=== PATIENT | female | born 1985 | race Caucasian/White ===

== ENCOUNTER 2016-04-08 08:45 | Emergency (ER) | payer OTHER ==
[~2016-04-08 08:45] MED LIST: ACET50TA PO; ANUS2.5C2 PR; DOCU10ELUD PO; IBUP80TA PO; MOM30SS PO; PRENTAB9 PO
--- NOTE | 2016-04-08 09:03 | EDDOCDS ---
Physician Documentation [facility] Name: Diana De La Torre Age: 30 yrs Sex: Female : 1985 Arrival Date: 04/08/2016 Time: 08:45 Bed I3 / M3 Private MD: Laura Disposition: 04/08/16 08:56 Discharged to Home/Self Care. Impression: Acute pharyngitis. - Condition is Stable. - Discharge Instructions: Pharyngitis. - Prescriptions for lidocaine HCl 2 % Mucous Membrane solution - take 15 milliliter by ORAL route every 3 hours As needed swish, gargle and spit; 200 milliliter. Amoxicillin 875 mg Oral Tablet - take 1 tablet by ORAL route every 12 hours for 10 days; 20 tablet. Prednisone 20 mg Oral Tablet - take 1 tablet by ORAL route once daily for 5 days; 5 tablet. - Medication Reconciliation, Local Pharmacy Hours form. - Follow up: Emergency Department; When: As needed; Reason: Worsening of conditions. Follow up: Laura; When: Call to arrange an appointment; Reason: Wound/Symptom Recheck, Recheck today's complaints, Worsening of conditions, Continuance of care. - Problem is new. - Symptoms are unchanged. Historical: - Allergies: no known allergies; - Home Meds: 1. none - PMHx: none; - PSHx: none; - Social history: Smoking status: Patient states was never smoker of tobacco. No barriers to communication noted, The patient speaks fluent Macanese, Speaks appropriately for age. - Family history: Not pertinent. - : The pt / caregiver states he / she is not on anticoagulants. Home medication list is obtained from the patient. - Exposure Risk Screening:: None identified. 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 2 in. (157.48 cm); Pain 8/10; 08:47 Body Mass Index 30.18 (74.84 kg, 157.48 cm) cmb Signatures: Kali Nazario RN RN mlb1 Nena ParikhRN RN ck1 [place], Marco, PA-C PA-C cc10 MTDD
--- NOTE | 2016-04-08 09:03 | EDDOCDS ---
Nurse's Notes [facility] Name: Diana De La Torre Age: 30 yrs Sex: Female : 1985 Arrival Date: 04/08/2016 Time: 08:45 Bed I3 / M3 Private MD: Laura Diagnosis: Acute pharyngitis Presentation: 04/08 08:49 Presenting complaint: Patient states: Sore throat began last night. Risk factors: mlb1 Stridor is not present. Drooling is not present. Shortness of breath is not present. Cellulitis is not present. Adult Sepsis Screening: The patient does not have new or worsening altered mentation. Patient's respiratory rate is less than 22. Systolic blood pressure is greater than 100. Patient has a qSOFA score of 0- Negative Sepsis Screen. Suicide/Homicide risk assessment- the patient denies having any suicidal and/or homicidal ideations and does not present with any other emotional, behavioral or mental health complaints. 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 Transition of care: patient was not received from another setting of care. 08:49 Acuity: SUNIL Level 4 mlb1 08:49 Method Of Arrival: Walkin/Carried/Asstd mlb1 Triage Assessment: 08:50 General: Appears in no apparent distress, Behavior is appropriate for age, cooperative. mlb1 Pain: Location: left aspect of posterior pharynx and right aspect of posterior pharynx Pain currently is 9 out of 10 on a pain scale. Pt Declines HIV testing. 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 none - PMHx: none; - PSHx: none; - Social history: Smoking status: Patient states was never smoker of tobacco. No barriers to communication noted, The patient speaks fluent Kazakh, Speaks appropriately for age. - Family history: Not pertinent. - : The pt / caregiver states he / she is not on anticoagulants. Home medication list is obtained from the patient. - Exposure Risk Screening:: None identified. Screenin:00 Screening information is obtained from the patient. Fall risk: No risks identified. ck1 Assistance ADL's: requires no assistance with activities of daily living. Abuse/DV Screen: The patient / caregiver reports he/she is: not in a situation that causes fear, pain or injury. Nutritional screening: No deficits noted. Advance Directives: Currently, there is no health care proxy. home support is adequate. Assessment: 09:00 General: Appears in no apparent distress, comfortable, Behavior is appropriate for age, ck1 cooperative. Pain: Location: throat Pain currently is 8 out of 10 on a pain scale. EENT: Throat is reddened has enlarged tonsils bilaterally. Respiratory: Airway is patent Respiratory effort is unlabored, Respiratory pattern is regular, symmetrical. Derm: Skin is intact, is healthy with good turgor, Skin is pink, warm & dry. Vital Signs: 08:47 BP 117 / 70; Pulse 99; Resp 16; Temp 99.4(O); Pulse Ox 98% ; Weight 74.84 kg; Height 5 cmb ft. 2 in. (157.48 cm); Pain 8/10; 08:47 Body Mass Index 30.18 (74.84 kg, 157.48 cm) cmb Vitals: 08:46 Log In Time: April 08, 2016 at 08:43. cmb ED Course: 08:46 Patient visited by Dyan Schmidt. cmb 08:46 Laura is Private Physician. cmb 08:46 Patient moved to Waiting cmb 08:48 Patient moved to Pre RCE cmb 08:49 Patient visited by Kali Nazario RN. mlb1 08:50 Triage Initiated mlb1 08:51 Patient visited by Kali Nazario RN. mlb1 08:51 Marco Pemberton [facility] cc10 08:51 Cindy Oscar MD is Attending Physician. cc10 08:51 Patient visited by Marco Pemberton PA-C. cc10 08:51 Patient visited by Marco Pemberton PA-C. cc10 08:51 Patient moved to I3 / M3 mlb1 08:56 Laura is Referral Physician. cc10 09:00 The patient / caregiver is instructed regarding the plan of care and ED course. ck1 09:00 No IV's were initiated during this patient's visit. No procedures done that require ck1 assistance. Order Results: There are currently no results for this order. Outcome: 08:56 Discharge ordered by Provider. cc10 09:01 Discharge Assessment: Patient awake, alert and oriented x 3. No cognitive and/or ck1 functional deficits noted. Patient verbalized understanding of disposition instructions. patient administered narcotics - no. The following High Risk Discharge criteria are identified: None. Discharged to home ambulatory. Condition: stable. Discharge instructions given to patient, Instructed on discharge instructions, follow up and referral plans. medication usage, Demonstrated understanding of instructions, medications, Pt was receptive of discharge instructions/ teaching. Prescriptions given X 3. No special radiology studies were completed. Property :Personal belongings accompany Pt. 09:02 Patient left the ED. ck1 Signatures: Kali Nazario, RN RN mlb1 Nena ParikhRN RN ck1 Dyan Schmidt Colin, PA-Meredith PA-C cc10 MTDD
--- NOTE | 2016-04-10 10:03 | EDDOCDS ---
Physician Documentation [facility] Name: Diana De La Torre Age: 30 yrs Sex: Female : 1985 Arrival Date: 04/08/2016 Time: 08:45 Bed I3 / M3 Private MD: Laura Disposition: 04/08/16 08:56 Discharged to Home/Self Care. Impression: Acute pharyngitis. - Condition is Stable. - Discharge Instructions: Pharyngitis. - Prescriptions for lidocaine HCl 2 % Mucous Membrane solution - take 15 milliliter by ORAL route every 3 hours As needed swish, gargle and spit; 200 milliliter. Amoxicillin 875 mg Oral Tablet - take 1 tablet by ORAL route every 12 hours for 10 days; 20 tablet. Prednisone 20 mg Oral Tablet - take 1 tablet by ORAL route once daily for 5 days; 5 tablet. - Medication Reconciliation, Local Pharmacy Hours form. - Follow up: Emergency Department; When: As needed; Reason: Worsening of conditions. Follow up: Laura; When: Call to arrange an appointment; Reason: Wound/Symptom Recheck, Recheck today's complaints, Worsening of conditions, Continuance of care. - Problem is new. - Symptoms are unchanged. Historical: - Allergies: no known allergies; - Home Meds: 1. none - PMHx: none; - PSHx: none; - Social history: Smoking status: Patient states was never smoker of tobacco. No barriers to communication noted, The patient speaks fluent Grenadian, Speaks appropriately for age. - Family history: Not pertinent. - : The pt / caregiver states he / she is not on anticoagulants. Home medication list is obtained from the patient. - Exposure Risk Screening:: None identified. 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 2 in. (157.48 cm); Pain 8/10; 08:47 Body Mass Index 30.18 (74.84 kg, 157.48 cm) cmb MDM: 09:51 [facility] Payment Agreement was scanned into [employer] and attached to record. lg 13:43 T-Sheet-- Draft Copy was scanned into [employer] and attached to record. gb Signatures: Julieth Martin, Reg Reg gb Marge Xavier, Reg Reg lg Kali Nazario RN RN mlb1 Nena ParikhRN RN ck1 Marco Pemberton, PAShariC PAShariC cc10 The chart was reviewed and I authenticate all verbal orders and agree with the evaluation and treatment provided.Attachments: 09:51 [facility] Payment Agreement lg 13:43 T-Sheet-- Draft Copy gb Chart Complete MTDD
--- NOTE | 2016-04-10 10:03 | EDDOCDS ---
Physician Documentation [facility] Name: Diana De La Torre Age: 30 yrs Sex: Female : 1985 Arrival Date: 04/08/2016 Time: 08:45 Bed I3 / M3 Private MD: Laura Disposition: 04/08/16 08:56 Discharged to Home/Self Care. Impression: Acute pharyngitis. - Condition is Stable. - Discharge Instructions: Pharyngitis. - Prescriptions for lidocaine HCl 2 % Mucous Membrane solution - take 15 milliliter by ORAL route every 3 hours As needed swish, gargle and spit; 200 milliliter. Amoxicillin 875 mg Oral Tablet - take 1 tablet by ORAL route every 12 hours for 10 days; 20 tablet. Prednisone 20 mg Oral Tablet - take 1 tablet by ORAL route once daily for 5 days; 5 tablet. - Medication Reconciliation, Local Pharmacy Hours form. - Follow up: Emergency Department; When: As needed; Reason: Worsening of conditions. Follow up: Laura; When: Call to arrange an appointment; Reason: Wound/Symptom Recheck, Recheck today's complaints, Worsening of conditions, Continuance of care. - Problem is new. - Symptoms are unchanged. Historical: - Allergies: no known allergies; - Home Meds: 1. none - PMHx: none; - PSHx: none; - Social history: Smoking status: Patient states was never smoker of tobacco. No barriers to communication noted, The patient speaks fluent Solomon Islander, Speaks appropriately for age. - Family history: Not pertinent. - : The pt / caregiver states he / she is not on anticoagulants. Home medication list is obtained from the patient. - Exposure Risk Screening:: None identified. 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 2 in. (157.48 cm); Pain 8/10; 08:47 Body Mass Index 30.18 (74.84 kg, 157.48 cm) cmb MDM: 09:51 [facility] Payment Agreement was scanned into [employer] and attached to record. lg 13:43 T-Sheet-- Draft Copy was scanned into [employer] and attached to record. gb Signatures: Julieth Martin, Reg Reg gb Marge Xavier, Reg Reg lg Kali Nazario RN RN mlb1 Nena ParikhRN RN ck1 Marco Pemberton, PAShariC PAShariC cc10 The chart was reviewed and I authenticate all verbal orders and agree with the evaluation and treatment provided.Attachments: 09:51 [facility] Payment Agreement lg 13:43 T-Sheet-- Draft Copy gb Chart Complete MTDD
--- NOTE | 2016-04-10 10:03 | EDDOCDS ---
Nurse's Notes [facility] Name: Diana De La Torre Age: 30 yrs Sex: Female : 1985 Arrival Date: 04/08/2016 Time: 08:45 Bed I3 / M3 Private MD: Laura Diagnosis: Acute pharyngitis Presentation: 04/08 08:49 Presenting complaint: Patient states: Sore throat began last night. Risk factors: mlb1 Stridor is not present. Drooling is not present. Shortness of breath is not present. Cellulitis is not present. Adult Sepsis Screening: The patient does not have new or worsening altered mentation. Patient's respiratory rate is less than 22. Systolic blood pressure is greater than 100. Patient has a qSOFA score of 0- Negative Sepsis Screen. Suicide/Homicide risk assessment- the patient denies having any suicidal and/or homicidal ideations and does not present with any other emotional, behavioral or mental health complaints. 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 Transition of care: patient was not received from another setting of care. 08:49 Acuity: SUNIL Level 4 mlb1 08:49 Method Of Arrival: Walkin/Carried/Asstd mlb1 Triage Assessment: 08:50 General: Appears in no apparent distress, Behavior is appropriate for age, cooperative. mlb1 Pain: Location: left aspect of posterior pharynx and right aspect of posterior pharynx Pain currently is 9 out of 10 on a pain scale. Pt Declines HIV testing. 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 none - PMHx: none; - PSHx: none; - Social history: Smoking status: Patient states was never smoker of tobacco. No barriers to communication noted, The patient speaks fluent Yakut, Speaks appropriately for age. - Family history: Not pertinent. - : The pt / caregiver states he / she is not on anticoagulants. Home medication list is obtained from the patient. - Exposure Risk Screening:: None identified. Screenin:00 Screening information is obtained from the patient. Fall risk: No risks identified. ck1 Assistance ADL's: requires no assistance with activities of daily living. Abuse/DV Screen: The patient / caregiver reports he/she is: not in a situation that causes fear, pain or injury. Nutritional screening: No deficits noted. Advance Directives: Currently, there is no health care proxy. home support is adequate. Assessment: 09:00 General: Appears in no apparent distress, comfortable, Behavior is appropriate for age, ck1 cooperative. Pain: Location: throat Pain currently is 8 out of 10 on a pain scale. EENT: Throat is reddened has enlarged tonsils bilaterally. Respiratory: Airway is patent Respiratory effort is unlabored, Respiratory pattern is regular, symmetrical. Derm: Skin is intact, is healthy with good turgor, Skin is pink, warm & dry. Vital Signs: 08:47 BP 117 / 70; Pulse 99; Resp 16; Temp 99.4(O); Pulse Ox 98% ; Weight 74.84 kg; Height 5 cmb ft. 2 in. (157.48 cm); Pain 8/10; 08:47 Body Mass Index 30.18 (74.84 kg, 157.48 cm) cmb Vitals: 08:46 Log In Time: April 08, 2016 at 08:43. cmb ED Course: 08:46 Patient visited by Dyan Schmidt. cmb 08:46 Laura is Private Physician. cmb 08:46 Patient moved to Waiting cmb 08:48 Patient moved to Pre RCE cmb 08:49 Patient visited by Kali Nazario RN. mlb1 08:50 Triage Initiated mlb1 08:51 Patient visited by Kali Nazario RN. mlb1 08:51 [facility] cc[facility] 08:51 Cindy Oscar MD is Attending Physician. cc10 08:51 Patient visited by Marco Pemberton PA-C. cc10 08:51 Patient visited by Marco Pemberton PA-C. cc10 08:51 Patient moved to I3 / M3 mlb1 08:56 Laura is Referral Physician. cc10 09:00 The patient / caregiver is instructed regarding the plan of care and ED course. ck1 09:00 No IV's were initiated during this patient's visit. No procedures done that require ck1 assistance. 09:50 Patient name changed from [place]\S\A\S\Alexandraanchez\S\ to [place]\S\Yarelis\S\Belmissanchez. EDMS 09:51 [facility] Payment Agreement was scanned into [employer] and attached to record. lg 13:43 T-Sheet-- Draft Copy was scanned into [employer] and attached to record. gb Order Results: There are currently no results for this order. Outcome: 08:56 Discharge ordered by Provider. cc10 09:01 Discharge Assessment: Patient awake, alert and oriented x 3. No cognitive and/or ck1 functional deficits noted. Patient verbalized understanding of disposition instructions. patient administered narcotics - no. The following High Risk Discharge criteria are identified: None. Discharged to home ambulatory. Condition: stable. Discharge instructions given to patient, Instructed on discharge instructions, follow up and referral plans. medication usage, Demonstrated understanding of instructions, medications, Pt was receptive of discharge instructions/ teaching. Prescriptions given X 3. No special radiology studies were completed. Property :Personal belongings accompany Pt. 09:02 Patient left the ED. ck1 Signatures: Dispatcher [facility] EDMO Julieth Martin, Reg Reg gb Marge Xavier, Reg Reg lg Aravind, Kali Fields RN RN mlb1 Nena ParikhRN RN ck1 Dyan Schmidt Colin, PAShariC PA-C cc10 Chart Complete MTDD
== END 2016-04-08 09:02 | disposition home or self-care (01) ==
LOC: M ED 08:45
DX: J02.0 Streptococcal pharyngitis (principal)

== ENCOUNTER → 2016-11-27 | Outpatient (REF) | payer OTHER | LOC: M LAB REF 15:08 | PROVIDERS: ATTEND Nurse Practitioner Family | DX: R30.0 Dysuria (principal) ==

== ENCOUNTER → 2016-12-02 | Outpatient (CLI) | payer OTHER ==
--- NOTE | 2016-12-02 12:24 | REP ---
Clinical: Pelvic pain . Technique: Transabdominal pelvic ultrasound followed by transvaginal examination for better evaluation of the endometrium and adnexa. Findings: Bladder is unremarkable and measures 9.3 x 9.6 x 5.2 cm. Normal anteverted uterus measures 10.5 x 3.9 x 5.6 cm . The endometrial complex measures 7.4 mm thickness. No discrete uterine or endometrial abnormalities are appreciated. Bilateral ovaries are normal in appearance. Right ovary measures 4.2 x 2.3 x 2.8 cm. Left ovary measures 5.0 x 2.3 x 2.7 cm. Trace pelvic fluid adjacent to the right ovary is nonspecific. No adnexal mass lesion. Impression: Essentially normal pelvic ultrasound. Trace right pelvic fluid is nonspecific and possibly physiologic.
== END ==
LOC: M WHC 10:42
PROVIDERS: ATTEND Nurse Practitioner Family
DX: R10.2 Pelvic and perineal pain (principal)

== ENCOUNTER → 2017-03-30 | Outpatient (REF) | payer OTHER ==
[2017-03-30 11:17] LABS: APPEARANCE, URINE HAZY (CLEAR); BACTERIA, URINE AUTO NEGATIVE (NEGATIVE); BILIRUBIN, URINE AUTO NEGATIVE (NEGATIVE); BLOOD, URINE BLOOD 2+ (NEGATIVE); COLOR, URINE YELLOW (YELLOW); GLUCOSE, URINE (UA) AUTO NEGATIVE (NEGATIVE); KETONE, URINE AUTO NEGATIVE (NEGATIVE); LEUKOCYTE ESTERASE, URINE AUTO NEGATIVE (NEGATIVE); MUCUS, URINE SMALL (NEGATIVE); NITRITE, URINE AUTO NEGATIVE (NEGATIVE); PROTEIN, URINE AUTO NEGATIVE (NEGATIVE); RBC, URINE AUTO 1 /HPF (0-3); SPECIFIC GRAVITY URINE AUTO 1.017 (1.002-1.035); SQUAMOUS EPITHELIAL CELL UR AU 1 /HPF (0-6); UROBILINOGEN, URINE AUTO 0.2 mg/dL (0.0-2.0); WBC, URINE AUTO 1 /HPF (0-3)
== END ==
LOC: M LAB REF 11:01
DX: R30.0 Dysuria (principal)

== ENCOUNTER 2017-04-01 02:54 | Emergency (ER) | payer OTHER ==
[2017-04-01] MEDS ORDERED: MAGIC MOUTHWASH SUSPENSION BTL SS (06:15)
[2017-04-01] MEDS: MAGIC MOUTHWASH SUSPENSION BTL SS (07:53)
== END 2017-04-01 07:58 | disposition home or self-care (01) ==
LOC: M ED 02:54
DX: J02.9 Acute pharyngitis, unspecified (principal); Z79.2 Long term (current) use of antibiotics
CPT/HCPCS: 87880

== ENCOUNTER → 2017-08-17 | Outpatient (REF) | payer OTHER, MEDICAID ==
[2017-08-17 18:42] LABS: PROGESTERONE 3.6 NG/ML
[2017-08-17 18:43] LABS: FOLLICLE STIMULATING HORMONE 5.5 mIU/mL
[2017-08-21 00:07] LABS: ESTROGENS TOTAL 306 pg/mL (.)
== END ==
LOC: M LAB REF 17:25
DX: N91.5 Oligomenorrhea, unspecified (principal)

== ENCOUNTER → 2017-09-09 | Outpatient (CLI) | payer MEDICAID, OTHER | LOC: M RAD 13:11 | DX: N64.4 Mastodynia (principal) | CPT/HCPCS: 77066 ==

== ENCOUNTER → 2017-10-11 | Outpatient (CLI) | payer OTHER, MEDICAID ==
[2017-10-14 14:40] LABS: E001-IgE Cat Epith/Dander < 0.10 kU/L (Class 0); E005-IgE Dog Dander < 0.10 kU/L (Class 0); G002-IgE Bermuda Grass < 0.10 kU/L (Class 0); G008-IgE Kentucky Bluegrass < 0.10 kU/L (Class 0); M001-IgE Penicillium chrysogen < 0.10 kU/L (Class 0); M002 IgE Cladosporium herbaru < 0.10 kU/L (Class 0); M003 IgE Aspergillus fumigatu < 0.10 kU/L (Class 0); M006-IgE Alternaria alternata < 0.10 kU/L (Class 0); T001-IgE Maple/Box Elder < 0.10 kU/L (Class 0); T003-IgE Common Silver Birch < 0.10 kU/L (Class 0); T006-IgE Cedar, Mountain < 0.10 kU/L (Class 0); T007-IgE Oak, White < 0.10 kU/L (Class 0); T008-IgE Elm, American < 0.10 kU/L (Class 0); T015-IgE Ash, White < 0.10 kU/L (Class 0); T041-IgE Hickory, White < 0.10 kU/L (Class 0); T070-IgE White Mulberry < 0.10 kU/L (Class 0); W001-IgE Ragweed, Short < 0.10 kU/L (Class 0); W009-IgE Plantain, English < 0.10 kU/L (Class 0); W014-IgE Pigweed, Rough < 0.10 kU/L (Class 0); W018-IgE Sheep Sorrel < 0.10 kU/L (Class 0)
== END ==
LOC: M LAB 09:49
DX: R09.81 Nasal congestion (principal)
CPT/HCPCS: 86003

== ENCOUNTER → 2018-04-19 | Outpatient (CLI) | payer BC ==
[~2018-04-19] MED LIST changes: +CIPR-249 PO; +MAGICMW SS; +TESS100C PO
--- NOTE | 2018-04-20 07:34 | REP ---
Clinical: Menorrhagia. Comparison: 04/20/2014 . Technique: Transabdominal pelvic ultrasound followed by transvaginal examination for better evaluation of the endometrium and adnexa with color Doppler evaluation of the ovaries. Findings: Bladder is unremarkable and measures 9.2 x 3.5 x 3.7 cm . Heterogeneous anteverted uterus measures 6.7 x 4.8 x 5.6 cm . The endometrial complex measures 15.1 mm thickness and a small focal area of fluid is identified towards the fundus. No discrete uterine abnormalities are appreciated. Small subcentimeter Nabothian cyst noted. Bilateral ovaries are mildly enlarged but normal in overall appearance and vascularity without evidence for torsion. Right ovary measures 4.4 x 2.1 x 3.9 cm ; R I = 0.48 . Left ovary measures 4.7 x 2.3 x 2.7 cm ; R I = 0.52 . No pelvic free fluid. Impression: 1. Heterogeneous uterus with subcentimeter Nabothian cysts and small amount of fluid in the endocervical canal which is nonspecific. Electronically Signed by Pravin Powell MD 04/20/2018 07:26 A
== END ==
LOC: M WHC 12:51
PROVIDERS: ATTEND Nurse Practitioner Women's Health
DX: N85.8 Other specified noninflammatory disorders of uterus (principal); N92.1 Excessive and frequent menstruation with irregular cycle

== ENCOUNTER → 2018-10-27 | Outpatient (REF) | payer BC, MEDICAID ==
[~2018-10-27] MED LIST changes: -ACET50TA PO; -DOCU10ELUD PO; +DOCU5LIQ PO; +MAPA500T17 PO
[2018-10-27 10:46] LABS: HEMATOCRIT 39.2 % (36.0-47.0); HEMOGLOBIN 13.1 g/dl (12.0-15.5); MEAN CORPUSCULAR HEMOGLOBIN 29.4 pg (27.0-33.0); MEAN CORPUSCULAR HGB CONC 33.4 g/dl (32.0-36.5); MEAN CORPUSCULAR VOLUME 88.1 fl (80.0-96.0); PLATELET COUNT, AUTOMATED 236 10^3/uL (150-450); RED BLOOD COUNT 4.45 10^6/uL (4.00-5.40); WHITE BLOOD COUNT 5.2 10^3/uL (4.0-10.0)
[2018-10-27 11:03] LABS: ALBUMIN 3.9 GM/DL (3.2-5.2); ALT/SGPT 31 U/L (12-78); BILIRUBIN,TOTAL 0.3 MG/DL (0.2-1.0); BLOOD UREA NITROGEN 13 MG/DL (7-18); CALCIUM LEVEL 8.4 MG/DL (8.5-10.1); CARBON DIOXIDE LEVEL 32 MEQ/L (21-32); CHLORIDE LEVEL 105 MEQ/L (98-107); CHOLESTEROL LEVEL 112 MG/DL (<200); CHOLESTEROL RISK RATIO 2.604 (<5); CREATININE FOR GFR 0.79 MG/DL (0.55-1.30); FREE T4 1.07 NG/DL (0.76-1.46); GLOMERULAR FILTRATION RATE > 60.0 (>60); GLUCOSE, FASTING 89 MG/DL (70-100); HDL CHOLESTEROL 43 MG/DL (>40); LDL CHOLESTEROL 50 MG/DL (<100); NON-HDL-C 69 MG/DL; POTASSIUM SERUM 3.6 MEQ/L (3.5-5.1); SODIUM LEVEL 142 MEQ/L (136-145); THYROID STIMULATING HORMONE 0.684 uIU/ML (0.358-3.740); TOTAL 25(OH) VITAMIN D 22.4 NG/ML (30.0-100.0); TOTAL PROTEIN 7.1 GM/DL (6.4-8.2); TRIGLYCERIDES LEVEL 95 MG/DL (<150)
[2018-10-27 11:04] LABS: FOLATE 18.1 NG/ML; VITAMIN B12 LEVEL 613 PG/ML
[2018-10-27 11:06] LABS: HEMOGLOBIN A1c 5.6 %
[2018-10-27 11:11] LABS: ATYPICAL LYMPH 5 % (0-5); BASOPHILS 1 % (0-4); EOSINOPHILS 3 % (0-5); LYMPHOCYTES 24 % (16-52); MONOCYTES 13 % (0-8); NEUTROPHILS 54 % (35-75)
[2018-10-27 11:14] LABS: ANISOCYTOSIS 1+
[2018-10-27 11:15] LABS: PLATELET ESTIMATE NORMAL (NORMAL)
== END ==
LOC: M LAB REF 09:34
PROVIDERS: ATTEND Nurse Practitioner Family
DX: Z13.9 Encounter for screening, unspecified (principal)

== ENCOUNTER 2019-04-25 07:10 | Emergency (ER) | payer BC, MEDICAID ==
[~2019-04-25] VITALS: Ht 157.5 cm; Wt 76.1 kg
[2019-04-25] MEDS ORDERED: NS 1,000 ML IV ONE ×2 (08:00→10:00)
--- NOTE | 2019-04-25 08:05 | ECGEPIP ---
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
[2019-04-25 08:24] LABS: BASO % 0.4 % (0.0-1.0); EOS % 0.4 % (0.0-3.0); HEMATOCRIT 39.8 % (36.0-47.0); HEMOGLOBIN 13.4 g/dl (12.0-15.5); LYMPH # 0.7 10^3/uL (1.5-5.0); LYMPH % 8.2 % (24.0-44.0); MEAN CORPUSCULAR HGB CONC 33.7 g/dl (32.0-36.5); MEAN CORPUSCULAR VOLUME 89.2 fl (80.0-96.0); MONO # 0.4 10^3/uL (0.0-0.8); MONO % 4.6 % (0.0-5.0); NEUTROPHILS # 7.3 10^3/uL (1.5-8.5); PLATELET COUNT, AUTOMATED 276 10^3/uL (150-450); RED BLOOD COUNT 4.46 10^6/uL (4.00-5.40); WHITE BLOOD COUNT 8.4 10^3/uL (4.0-10.0)
[2019-04-25 08:51] LABS: HCG, SERUM QUALITATIVE NEGATIVE (NEGATIVE)
[2019-04-25 09:01] LABS: ALBUMIN 3.8 GM/DL (3.2-5.2); ALT/SGPT 21 U/L (12-78); BILIRUBIN,DIRECT 0.2 MG/DL (0.0-0.2); BILIRUBIN,TOTAL 0.8 MG/DL (0.2-1.0); BLOOD UREA NITROGEN 15 MG/DL (7-18); CALCIUM LEVEL 8.1 MG/DL (8.5-10.1); CARBON DIOXIDE LEVEL 27 MEQ/L (21-32); CHLORIDE LEVEL 108 MEQ/L (98-107); CREATININE FOR GFR 0.78 MG/DL (0.55-1.30); FREE T4 0.99 NG/DL (0.76-1.46); GLOMERULAR FILTRATION RATE > 60.0 (>60); GLUCOSE, FASTING 99 MG/DL (70-100); POTASSIUM SERUM 3.8 MEQ/L (3.5-5.1); SODIUM LEVEL 142 MEQ/L (136-145); THYROID STIMULATING HORMONE 0.298 uIU/ML (0.358-3.740); TOTAL PROTEIN 6.7 GM/DL (6.4-8.2)
[2019-04-25 12:00] VITALS: BP 104/57
== END 2019-04-25 12:20 | disposition home or self-care (01) ==
LOC: M ED 07:10
DX: R11.10 Vomiting, unspecified (principal); R19.7 Diarrhea, unspecified; R94.6 Abnormal results of thyroid function studies; I95.1 Orthostatic hypotension

== ENCOUNTER → 2019-05-02 | Outpatient (REF) | payer BC ==
[~2019-05-02] MED LIST changes: +CIPR250T3 PO
[2019-05-02 16:55] LABS: APPEARANCE, URINE CLOUDY (CLEAR); BACTERIA, URINE AUTO 2+ (NEGATIVE); BILIRUBIN, URINE AUTO NEGATIVE (NEGATIVE); BLOOD, URINE BLOOD 2+ (NEGATIVE); COLOR, URINE YELLOW (YELLOW); GLUCOSE, URINE (UA) AUTO NEGATIVE (NEGATIVE); KETONE, URINE AUTO NEGATIVE (NEGATIVE); LEUKOCYTE ESTERASE, URINE AUTO 3+ (NEGATIVE); MUCUS, URINE SMALL (NEGATIVE); NITRITE, URINE AUTO POSITIVE (NEGATIVE); PROTEIN, URINE AUTO 2+ mg/dL (NEGATIVE); RBC, URINE AUTO 109 /HPF (0-3); SPECIFIC GRAVITY URINE AUTO 1.019 (1.002-1.035); SQUAMOUS EPITHELIAL CELL UR AU 2 /HPF (0-6); UROBILINOGEN, URINE AUTO 0.2 mg/dL (0.0-2.0); WBC, URINE AUTO TNTC /HPF (0-3)
[2019-05-02 18:17] LABS: ALBUMIN 4.2 GM/DL (3.2-5.2); ALT/SGPT 59 U/L (12-78); BILIRUBIN,TOTAL 0.5 MG/DL (0.2-1.0); BLOOD UREA NITROGEN 15 MG/DL (7-18); CALCIUM LEVEL 8.8 MG/DL (8.5-10.1); CARBON DIOXIDE LEVEL 31 MEQ/L (21-32); CHLORIDE LEVEL 105 MEQ/L (98-107); CREATININE FOR GFR 0.79 MG/DL (0.55-1.30); GLOMERULAR FILTRATION RATE > 60.0 (>60); GLUCOSE, FASTING 82 MG/DL (70-100); MAGNESIUM LEVEL 2.4 MG/DL (1.8-2.4); POTASSIUM SERUM 3.6 MEQ/L (3.5-5.1); SODIUM LEVEL 141 MEQ/L (136-145); TOTAL PROTEIN 7.1 GM/DL (6.4-8.2)
[2019-05-02 18:25] LABS: FOLATE 17.2 NG/ML; VITAMIN B12 LEVEL 447 PG/ML
[2019-05-02 18:32] LABS: BASO # 0.1 10^3/uL (0.0-0.2); BASO % 0.6 % (0.0-1.0); EOS # 0.1 10^3/uL (0.0-0.5); EOS % 0.9 % (0.0-3.0); HEMATOCRIT 40.7 % (36.0-47.0); LYMPH # 2.2 10^3/uL (1.5-5.0); LYMPH % 18.5 % (24.0-44.0); MEAN CORPUSCULAR HEMOGLOBIN 29.2 pg (27.0-33.0); MEAN CORPUSCULAR HGB CONC 31.9 g/dl (32.0-36.5); MEAN CORPUSCULAR VOLUME 91.5 fl (80.0-96.0); MONO # 0.8 10^3/uL (0.0-0.8); MONO % 7.1 % (0.0-5.0); NEUTROPHILS # 8.5 10^3/uL (1.5-8.5); NEUTROPHILS % 72.2 % (36.0-66.0); PLATELET COUNT, AUTOMATED 321 10^3/uL (150-450); RED BLOOD COUNT 4.45 10^6/uL (4.00-5.40); WHITE BLOOD COUNT 11.8 10^3/uL (4.0-10.0)
== END ==
LOC: M LAB REF 16:19
PROVIDERS: ATTEND Nurse Practitioner Family
DX: R30.0 Dysuria (principal)

== ENCOUNTER 2019-05-06 08:13 | Emergency (ER) | payer BC ==
[~2019-05-06] VITALS: Ht 157.5 cm; Wt 75.5 kg
[~2019-05-06 08:13] MED LIST changes: -CIPR250T3 PO
[2019-05-06] MEDS ORDERED: CIPR250T3 PO (08:38)
[2019-05-06] MEDS ORDERED: ALBUTEROL SULFATE 2.5 MG/0.5 ML INH NEB SOLN NEB ONE (09:15)
[2019-05-06] MEDS ORDERED: ACETAMINOPHEN 500 MG TAB PO ONE (09:15)
[2019-05-06 09:17] LABS: INFLUENZA A AMPLIFICATION POSITIVE (NEGATIVE); INFLUENZA B AMPLIFICATION NEGATIVE (NEGATIVE)
[2019-05-06 10:28] VITALS: BP 105/50
[2019-05-06] MEDS ORDERED: IBUPROFEN 600 MG TAB PO ONE (10:30)
== END 2019-05-06 10:42 | disposition home or self-care (01) ==
LOC: M ED 08:13
DX: J09.X9 Influenza due to identified novel influenza A virus with other manifestations (principal); N39.0 Urinary tract infection, site not specified; Z79.2 Long term (current) use of antibiotics

== ENCOUNTER → 2019-11-13 | Outpatient (REF) | payer BC ==
[~2019-11-13] MED LIST changes: +ACETAMINOPHEN; +CIPR250T3 PO; +MACR100C43 PO; +PYRI1TAB5 PO
[2019-12-29 11:35] LABS: HEMATOCRIT 40.2 % (36.0-47.0); HEMOGLOBIN 12.9 g/dl (12.0-15.5)
[2020-01-08 22:04] LABS: FREE T4 0.93 NG/DL (0.76-1.46); THYROID STIMULATING HORMONE 0.723 uIU/ML (0.358-3.740)
== END ==
LOC: M SFHCWAGY 08:49
PROVIDERS: ATTEND Nurse Practitioner Women's Health
DX: N92.0 Excessive and frequent menstruation with regular cycle (principal)

== ENCOUNTER → 2019-11-13 | Outpatient (CLI) | payer BC ==
--- NOTE | 2019-12-19 10:21 | REP ---
PELVIC SONOGRAPHY: HISTORY: Abnormal menstrual bleeding. COMPARISON: Pelvic sonography from 12/02/16. FINDINGS: Transabdominal and transvaginal scanning are included. Uterine dimensions are normal at 8.4 x 4.0 x 5.1 cm. Endometrial echo is 1.2 cm thick. There is a small hyperechoic nodular area in the endometrium in the uterine fundus, which may be a polyp. This measures 1.0 x 0.9 x 1.0 cm. No myometrial mass lesion is seen. No free fluid is noted. Multiple ovarian follicles are seen bilaterally. The ovaries are normal. Right ovarian dimensions are 3.3 x 2.6 x 3.3 cm. The left ovary measures 3.1 x 2.2 x 3.0 cm. Resistive indices by Doppler are 0.54 on the right and 0.59 on the left. Doppler flow is present bilaterally in the ovaries. IMPRESSION: Possible endometrial polyp. Otherwise unremarkable pelvic sonography. MTDD
== END ==
LOC: M WHC 16:55
PROVIDERS: ATTEND Nurse Practitioner Women's Health
DX: N92.0 Excessive and frequent menstruation with regular cycle (principal)

== ENCOUNTER 2019-12-01 17:18 | Emergency (ER) | payer BC ==
[~2019-12-01] VITALS: Ht 157.5 cm; Wt 81.5 kg
[~2019-12-01 17:18] MED LIST changes: -ACETAMINOPHEN; -MACR100C43 PO; -PYRI1TAB5 PO
[2019-12-01] MEDS ORDERED: PYRI1TAB5 PO (18:26)
[2019-12-01] MEDS ORDERED: MACR100C43 PO (18:26)
[2019-12-01] MEDS ORDERED: PHENAZOPYRIDINE 100 MG TAB PO ONE (18:30)
[2019-12-01] MEDS ORDERED: NITROFURANTOIN (MACROBID) 100 MG CAP PO ONE (18:30)
[2019-12-01 18:35] VITALS: BP 123/77
== END 2019-12-01 18:36 | disposition home or self-care (01) ==
LOC: M ED 17:18
DX: N39.0 Urinary tract infection, site not specified (principal)

== ENCOUNTER 2019-12-26 16:52 | Emergency (ER) | payer BC ==
[~2019-12-26] VITALS: Ht 157.5 cm; Wt 83.3 kg
[~2019-12-26 16:52] MED LIST changes: +MACR100C43 PO; +PYRI1TAB5 PO
[2019-12-26] MEDS ORDERED: ACETAMINOPHEN (16:59)
[2019-12-26 19:57] VITALS: BP 131/73
== END 2019-12-26 20:09 | disposition home or self-care (01) ==
LOC: M ED 16:52
DX: J06.9 Acute upper respiratory infection, unspecified (principal); B34.9 Viral infection, unspecified

== ENCOUNTER → 2020-01-28 | Outpatient (CLI) | payer BC ==
[~2020-01-28] MED LIST changes: +ACETAMINOPHEN
== END ==
LOC: M LABSMTC 10:23
PROVIDERS: ATTEND Anesthesiology
DX: Z01.812 Encounter for preprocedural laboratory examination (principal); Z20.828 Contact with and (suspected) exposure to other viral communicable diseases
CPT/HCPCS: C9803; U0003

== ENCOUNTER 2020-02-02 08:22 | Day surgery (SDC) | payer BC ==
[~2020-02-02] VITALS: Ht 157.5 cm; Wt 83.2 kg
[~2020-02-02 08:22] MED LIST changes: +KETOROLAC 60MG 2ML VIAL As Ordered ONE; +LIDOCAINE 2% 100MG/5ML SDV (FOR ANES.) As Ordered ONE; +LR 1,000 ML IV ONE; +MIDAZOLAM INJ 2MG/2ML VIAL (J2250 PER 1MG) As Ordered ONE; +ONDANSETRON 4MG/2ML VIAL As Ordered ONE; +dexameTHASONE 4 MG/ML 1ML VIAL (J1100 PER 1MG) As Ordered ONE; +fentaNYL 250 MCG/5 ML INJECTION (J3010) As Ordered ONE; +propofoL 200 MG/20 ML VIAL As Ordered ONE
[2020-02-02 09:00] LABS: HEMATOCRIT 39.9 % (36.0-47.0); HEMOGLOBIN 12.8 g/dl (12.0-15.5); MEAN CORPUSCULAR HEMOGLOBIN 28.9 pg (27.0-33.0); MEAN CORPUSCULAR HGB CONC 32.1 g/dl (32.0-36.5); MEAN CORPUSCULAR VOLUME 90.1 fl (80.0-96.0); PLATELET COUNT, AUTOMATED 312 10^3/uL (150-450); RED BLOOD COUNT 4.43 10^6/uL (4.00-5.40)
[2020-02-02] MEDS ORDERED: ACETAMINOPHEN 1000MG 100ML IV BTL (OFIRMEV) (J0131 PER 10MG) As Ordered ONE (11:38)
[2020-02-02] MEDS ORDERED: ePHEDrine SULFATE 25 MG/5 ML(5MG/ML) SYRINGE As Ordered ONE (11:42)
[2020-02-02] MEDS ORDERED: ONDANSETRON 4MG/2ML VIAL As Ordered ONE (12:21)
[2020-02-02] MEDS ORDERED: oxyCODONE 5MG TAB As Ordered ONE (12:21)
[2020-02-02] MEDS ORDERED: fentaNYL 100 MCG/2 ML INJECTION (J3010) As Ordered ONE (12:21)
[2020-02-02] MEDS: fentaNYL 100 MCG/2 ML INJECTION (J3010) IV PRN ×2 (12:25→12:46)
[2020-02-02] MEDS ORDERED: oxyCODONE 5MG TAB PO PRN (13:00)
[2020-02-02] MEDS ORDERED: LR 1,000 ML IV SCH (13:00)
[2020-02-02] MEDS ORDERED: ONDANSETRON 4MG/2ML VIAL IV PRN (13:00)
[2020-02-02] MEDS ORDERED: PERCOCET 5MG/325MG TAB PO PRN (13:00)
[2020-02-02 14:55] VITALS: BP 120/72
--- NOTE | 2020-02-02 17:59 | ROOPDOC ---
[facility] Report Of Operation Report of Operation DATE OF PROCEDURE: 02/02/20 PREOPERATIVE DIAGNOSIS: Abnormal uterine bleeding. POSTOPERATIVE DIAGNOSIS: Abnormal uterine bleeding. PROCEDURE PERFORMED: Hysteroscopy, dilation and curettage with NovaSure ablation. 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 ANESTHESIA: General. ESTIMATED BLOOD LOSS: 5 mL. INTRAVENOUS FLUIDS: 1 liter of lactated Ringer's solution. URINE OUTPUT: Was not obtained. SPECIMENS: Endometrial curettings. OPERATIVE FINDINGS: The patient with thickened endometrium with bilateral ostia visualized, cavity measured 6 x 2.5 cm. Postablation showed desiccation of the endometrium. Ablation lasted approximately 1 minute 40 seconds. DESCRIPTION OF OPERATION: After informed consent was obtained and written consent was reviewed, the patient was brought to the operating room where she was placed under general anesthesia. She was then placed in lithotomy position, was prepped and draped in a normal sterile fashion. A time out in the operating room was then performed identifying the patient, procedure be performed as well as drug allergies. Tiffin speculum was then placed revealing the cervix and the anterior lip of cervix was grasped with a single-tooth tenaculum. The cervix was sounded and the uterine length was obtained. The cervix was then sequentially dilated with Hanks dilators. Hysteroscope was then advanced through the cervical os and the endometrium was surveyed showing a thickened endometrium. Bilateral ostia was visualized. Hysteroscope was then removed and the NovaSure device was then placed through the cervical os where the uterine width was obtained. Uterine width as well as the length was then entered into the device, a cavity assessment was performed and ablation was followed for approximately 1 minute 40 seconds. The NovaSure was then removed. The mesh was inspected noted to be intact. Hysteroscope was then advanced showing desiccation of the endometrium. Hysteroscope was then removed. Single-tooth tenaculum was removed. Tenaculum sites were noted be hemostatic. Speculum was then removed. The patient was then taken out of lithotomy position was awakened from general anesthesia and taken recovery in stable condition. Counts were correct. NAFISA HELMS MD. Feb 02, 2020 17:59
[2020-02-02] MEDS ORDERED: KETOROLAC 30 MG/ML 1ML VIAL IV SCH (18:00)
== END 2020-02-02 14:55 | disposition home or self-care (01) ==
LOC: M SDC 08:22
PROVIDERS: ATTEND Obstetrics & Gynecology
DX: N93.9 Abnormal uterine and vaginal bleeding, unspecified (principal)
CPT/HCPCS: 36415; 58558; 81025; 85027; 86850; 86900; 86901; 88305; J0131; J1100; J1885; J2250; J2405; J3010

== ENCOUNTER → 2020-08-27 | Outpatient (CLI) | payer BC ==
[~2020-08-27] MED LIST changes: -KETOROLAC 60MG 2ML VIAL As Ordered ONE; -LIDOCAINE 2% 100MG/5ML SDV (FOR ANES.) As Ordered ONE; -LR 1,000 ML IV ONE; -MIDAZOLAM INJ 2MG/2ML VIAL (J2250 PER 1MG) As Ordered ONE; -ONDANSETRON 4MG/2ML VIAL As Ordered ONE; -dexameTHASONE 4 MG/ML 1ML VIAL (J1100 PER 1MG) As Ordered ONE; -fentaNYL 250 MCG/5 ML INJECTION (J3010) As Ordered ONE; -propofoL 200 MG/20 ML VIAL As Ordered ONE
[2020-08-27 16:15] LABS: HEMATOCRIT 41.1 % (36.0-47.0); HEMOGLOBIN 13.4 g/dl (12.0-15.5); MEAN CORPUSCULAR HEMOGLOBIN 29.6 pg (27.0-33.0); MEAN CORPUSCULAR HGB CONC 32.6 g/dl (32.0-36.5); MEAN CORPUSCULAR VOLUME 90.9 fl (80.0-96.0); PLATELET COUNT, AUTOMATED 315 10^3/uL (150-450); RED BLOOD COUNT 4.52 10^6/uL (4.00-5.40); WHITE BLOOD COUNT 9.7 10^3/uL (4.0-10.0)
[2020-08-27 16:48] LABS: ALBUMIN 4.2 GM/DL (3.2-5.2); ALT/SGPT 23 U/L (12-78); BILIRUBIN,DIRECT < 0.1 MG/DL (0.0-0.2); BILIRUBIN,TOTAL 0.2 MG/DL (0.2-1.0); BLOOD UREA NITROGEN 18 MG/DL (7-18); CALCIUM LEVEL 9.5 MG/DL (8.5-10.1); CARBON DIOXIDE LEVEL 31 MEQ/L (21-32); CHLORIDE LEVEL 104 MEQ/L (98-107); CREATININE FOR GFR 0.78 MG/DL (0.55-1.30); GLOMERULAR FILTRATION RATE > 60.0 (>60); GLUCOSE, FASTING 83 MG/DL (70-100); PHOSPHORUS LEVEL 3.1 MG/DL (2.5-4.9); POTASSIUM SERUM 3.9 MEQ/L (3.5-5.1); SODIUM LEVEL 140 MEQ/L (136-145); TOTAL PROTEIN 7.3 GM/DL (6.4-8.2)
== END ==
LOC: M LAB 15:41
PROVIDERS: ATTEND Podiatrist Foot & Ankle Surgery
DX: B35.1 Tinea unguium (principal)

== ENCOUNTER → 2020-10-04 | Outpatient (CLI) | payer BC ==
[2020-10-04 10:30] LABS: HEMATOCRIT 42.6 % (36.0-47.0); HEMOGLOBIN 14.2 g/dl (12.0-15.5); MEAN CORPUSCULAR HEMOGLOBIN 29.5 pg (27.0-33.0); MEAN CORPUSCULAR HGB CONC 33.3 g/dl (32.0-36.5); MEAN CORPUSCULAR VOLUME 88.6 fl (80.0-96.0); PLATELET COUNT, AUTOMATED 307 10^3/uL (150-450); RED BLOOD COUNT 4.81 10^6/uL (4.00-5.40); WHITE BLOOD COUNT 6.6 10^3/uL (4.0-10.0)
[2020-10-04 11:02] LABS: BLOOD UREA NITROGEN 15 MG/DL (7-18); CALCIUM LEVEL 8.7 MG/DL (8.5-10.1); CARBON DIOXIDE LEVEL 29 MEQ/L (21-32); CHLORIDE LEVEL 106 MEQ/L (98-107); CREATININE FOR GFR 0.86 MG/DL (0.55-1.30); GLOMERULAR FILTRATION RATE > 60.0 (>60); GLUCOSE, FASTING 81 MG/DL (70-100); PHOSPHORUS LEVEL 2.6 MG/DL (2.5-4.9); POTASSIUM SERUM 4.1 MEQ/L (3.5-5.1); SODIUM LEVEL 141 MEQ/L (136-145)
[2020-10-04 11:24] LABS: HEPATITIS B SURFACE ANTIGEN NEGATIVE (NEGATIVE)
[2020-10-04 11:52] LABS: HEPATITIS B CORE ANTIBODY IGM NEGATIVE (NEGATIVE)
[2020-10-04 11:54] LABS: HEPATITIS A ANTIBODY IGM NEGATIVE (NEGATIVE)
== END ==
LOC: M LAB 08:23
PROVIDERS: ATTEND Podiatrist Foot & Ankle Surgery
DX: B35.1 Tinea unguium (principal)

== ENCOUNTER → 2021-03-14 | Outpatient (CLI) | payer BC | LOC: M WHC 07:22 | PROVIDERS: ATTEND Nurse Practitioner Women's Health | DX: R10.2 Pelvic and perineal pain (principal); Z87.42 Personal history of other diseases of the female genital tract ==

== ENCOUNTER 2021-10-25 19:39 | Emergency (ER) | payer BC ==
[~2021-10-25] VITALS: Ht 157.5 cm; Wt 80.8 kg
[2021-10-25 20:29] LABS: BASO # 0.1 10^3/uL (0.0-0.2); BASO % 0.7 % (0.0-1.0); EOS # 0.3 10^3/uL (0.0-0.5); EOS % 2.9 % (0.0-3.0); HEMATOCRIT 39.4 % (36.0-47.0); HEMOGLOBIN 13.2 g/dl (12.0-15.5); LYMPH # 2.8 10^3/uL (1.5-5.0); LYMPH % 24.3 % (24.0-44.0); MEAN CORPUSCULAR HEMOGLOBIN 30.2 pg (27.0-33.0); MEAN CORPUSCULAR HGB CONC 33.5 g/dl (32.0-36.5); MEAN CORPUSCULAR VOLUME 90.2 fl (80.0-96.0); MONO # 0.7 10^3/uL (0.0-0.8); MONO % 6.4 % (2.0-8.0); NEUTROPHILS # 7.5 10^3/uL (1.5-8.5); NEUTROPHILS % 65.4 % (36.0-66.0); PLATELET COUNT, AUTOMATED 290 10^3/uL (150-450); RED BLOOD COUNT 4.37 10^6/uL (4.00-5.40); WHITE BLOOD COUNT 11.5 10^3/uL (4.0-10.0)
[2021-10-25 20:51] LABS: ALT/SGPT 22 U/L (12-78); BILIRUBIN,DIRECT 0.1 MG/DL (0.0-0.2); BILIRUBIN,TOTAL 0.4 MG/DL (0.2-1.0); BLOOD UREA NITROGEN 19 MG/DL (7-18); CALCIUM LEVEL 9.3 MG/DL (8.5-10.1); CARBON DIOXIDE LEVEL 28 MEQ/L (21-32); CHLORIDE LEVEL 109 MEQ/L (98-107); CREATININE FOR GFR 0.86 MG/DL (0.55-1.30); GLOMERULAR FILTRATION RATE > 60.0 (>60); GLUCOSE, FASTING 97 MG/DL (70-100); LIPASE 99 U/L (73-393); POTASSIUM SERUM 3.4 MEQ/L (3.5-5.1); SODIUM LEVEL 143 MEQ/L (136-145)
[2021-10-25] MEDS ORDERED: KETOROLAC 30 MG/ML 1ML VIAL IV ONE (21:50)
[2021-10-25 21:57] LABS: MAGNESIUM LEVEL 2.3 MG/DL (1.8-2.4)
[2021-10-25] MEDS ORDERED: ISOVUE-370 76% 100ML VIAL As Ordered ONE (22:17)
[2021-10-26 00:06] VITALS: BP 109/58
== END 2021-10-26 00:10 | disposition home or self-care (01) ==
LOC: M ED 19:39
DX: R10.32 Left lower quadrant pain (principal); R19.7 Diarrhea, unspecified; D25.9 Leiomyoma of uterus, unspecified
CPT/HCPCS: 74177; 80048; 80076; 81001; 83690; 83735; 84702; 85025; 93041; 96374; 99284; J1885; Q9967

== ENCOUNTER 2022-02-06 16:56 | Emergency (ER) | payer BC ==
[~2022-02-06] VITALS: Ht 157.5 cm; Wt 82.1 kg
[2022-02-06 16:58] VITALS: BP 128/68
[2022-02-06] MEDS ORDERED: ACET-683 PO (17:06)
[2022-02-06 18:47] LABS: RSV AMPLIFICATION NEGATIVE (NEGATIVE)
[2022-02-06] MEDS ORDERED: OSELTAMIVIR PHOSPHATE 75 MG CAP (TAMIFLU) PO ONE (20:15)
[2022-02-06] MEDS ORDERED: OSEL75CA PO (20:15)
== END 2022-02-06 20:29 | disposition home or self-care (01) ==
LOC: M ED 16:56
DX: J09.X2 Influenza due to identified novel influenza A virus with other respiratory manifestations (principal); R05.9 Cough, unspecified; R50.9 Fever, unspecified; Z20.822 Contact with and (suspected) exposure to COVID-19

== ENCOUNTER → 2022-05-07 | Outpatient (REF) | payer BC ==
[~2022-05-07] MED LIST changes: +ACET-683 PO; +OSEL75CA PO
[2022-05-08 13:27] LABS: APPEARANCE, URINE MANUAL HAZY (CLEAR); COLOR, URINE MANUAL YELLOW (YELLOW)
[2022-05-08 13:29] LABS: BILIRUBIN, URINE MANUAL NEGATIVE (NEGATIVE); BLOOD URINE MANUAL NEGATIVE (NEGATIVE); GLUCOSE, URINE (UA) MANUAL NEGATIVE (NEGATIVE); KETONE, URINE MANUAL NEGATIVE (NEGATIVE); LEUKOCYTE ESTERASE, URINE MAN TRACE (NEGATIVE); NITRITE, URINE MANUAL NEGATIVE (NEGATIVE); PROTEIN, URINE MANUAL NEGATIVE (NEGATIVE); UROBILINOGEN, URINE MANUAL NORMAL (NORMAL)
[2022-05-08 14:19] LABS: BACTERIA, URINE LARGE AMOUNT; HYALINE CAST, URINE NONE SEEN /lpf (0-1); MUCUS, URINE SMALL AMOUNT (NEGATIVE); RBC, URINE NONE SEEN /hpf (0-3); SQUAMOUS EPITHELIAL CELL URINE LARGE AMOUNT /hpf (SMALL AMT)
== END ==
LOC: M SFHCWAGY 10:05
PROVIDERS: ATTEND Advanced Practice Midwife
DX: R30.0 Dysuria (principal)

== ENCOUNTER → 2022-06-08 | Outpatient (REF) | payer BC | LOC: M SFHCWAGY 17:03 | PROVIDERS: ATTEND Obstetrics & Gynecology | DX: Z01.419 Encounter for gynecological examination (general) (routine) without abnormal findings (principal) ==

== ENCOUNTER → 2022-06-23 | Outpatient (CLI) | payer BC ==
[2022-06-23 16:33] LABS: FREE T4 1.13 NG/DL (0.89-1.76)
[2022-06-23 16:40] LABS: THYROID STIMULATING HORMONE 0.846 uIU/ML (0.55-4.78)
== END ==
LOC: M LAB 15:22
PROVIDERS: ATTEND Obstetrics & Gynecology
DX: N92.1 Excessive and frequent menstruation with irregular cycle (principal)

== ENCOUNTER 2022-07-20 05:55 | Day surgery (SDC) | payer BC ==
[~2022-07-20] VITALS: Ht 157.5 cm; Wt 79.2 kg
[~2022-07-20 05:55] MED LIST changes: +IBUP200C29 PO
[2022-07-20] MEDS ORDERED: ceFAZolin SOD 2 GM in IV 1 EA IV ONE (06:00)
[2022-07-20 06:35] LABS: HEMATOCRIT 41.8 % (36.0-47.0); HEMOGLOBIN 13.8 g/dl (12.0-15.5); MEAN CORPUSCULAR HEMOGLOBIN 29.9 pg (27.0-33.0); MEAN CORPUSCULAR VOLUME 90.7 fl (80.0-96.0); PLATELET COUNT, AUTOMATED 305 10^3/uL (150-450); RED BLOOD COUNT 4.61 10^6/uL (4.00-5.40); WHITE BLOOD COUNT 7.9 10^3/uL (4.0-10.0)
[2022-07-20] MEDS ORDERED: LR 1,000 ML IV SCH ×2 (06:50→09:35)
[2022-07-20] MEDS ORDERED: BUPIVACAINE HCL 0.25% 30ML VIAL As Ordered ONE (07:12)
[2022-07-20] MEDS ORDERED: fentaNYL 100 MCG/2 ML INJECTION As Ordered ONE ×2 (07:19→08:39)
[2022-07-20] MEDS ORDERED: MIDAZOLAM INJ 2MG/2ML VIAL As Ordered ONE (07:19)
[2022-07-20] MEDS ORDERED: propofoL 200 MG/20 ML VIAL As Ordered ONE (07:19)
[2022-07-20] MEDS ORDERED: ROCURONIUM BROMIDE 50MG/5ML VIAL As Ordered ONE ×2 (07:20→08:34)
[2022-07-20] MEDS ORDERED: LIDOCAINE 2% 100MG/5ML SDV (FOR ANES.) As Ordered ONE (07:20)
[2022-07-20] MEDS ORDERED: METOCLOPRAMIDE INJ 10MG/2ML VIAL As Ordered ONE (07:20)
[2022-07-20] MEDS ORDERED: ONDANSETRON 4MG 2ML VIAL As Ordered ONE (07:20)
[2022-07-20] MEDS ORDERED: METOPROLOL 5 MG/5 ML VIAL As Ordered ONE (08:08)
[2022-07-20] MEDS ORDERED: METHYLENE BLUE 0.5% (5MG/ML) 10 ML AMP (PROVAYBLUE) As Ordered ONE (08:13)
[2022-07-20] MEDS ORDERED: ACETAMINOPHEN 1000MG 100ML IV BAG As Ordered ONE (08:19)
[2022-07-20] MEDS ORDERED: KETAMINE HCL 200MG/20ML VIAL As Ordered ONE (08:27)
[2022-07-20] MEDS ORDERED: KETOROLAC 60MG 2ML VIAL As Ordered ONE (09:03)
[2022-07-20] MEDS ORDERED: SUGAMMADEX SODIUM 500 MG/5 ML VIAL (BRIDION) As Ordered ONE (09:17)
[2022-07-20] MEDS ORDERED: ONDANSETRON 4MG 2ML VIAL IV PRN (09:35)
[2022-07-20] MEDS ORDERED: oxyCODONE 5MG TAB PO PRN (09:35)
[2022-07-20] MEDS ORDERED: HYDROMORPHONE HCL 0.5 MG/ 0.5 ML SYRINGE IV PRN (09:35)
[2022-07-20] MEDS ORDERED: fentaNYL 100 MCG/2 ML INJECTION IV PRN (09:35)
[2022-07-20] MEDS ORDERED: PERCOCET 5MG/325MG TAB PO PRN (10:10)
[2022-07-20 11:34] VITALS: BP 119/65
[2022-07-20] MEDS ORDERED: KETOROLAC 30 MG/ML 1ML VIAL IV SCH (14:00)
== END 2022-07-20 11:42 | disposition home or self-care (01) ==
LOC: M SDC 05:55
PROVIDERS: ATTEND Obstetrics & Gynecology
DX: R10.2 Pelvic and perineal pain (principal); G89.29 Other chronic pain
CPT/HCPCS: 36415; 58571; 85027; 86850; 86900; 86901; 88307; J0131; J0690; J1100; J1885; J2250; J2405; J2765; J3010; Q9968; S0020; S2900

== ENCOUNTER → 2023-06-16 | Outpatient (REF) | payer BC ==
[2023-06-16 18:06] LABS: HEMATOCRIT 40.2 % (36.0-47.0); HEMOGLOBIN 13.4 g/dl (12.0-15.5); MEAN CORPUSCULAR HEMOGLOBIN 29.9 pg (27.0-33.0); MEAN CORPUSCULAR HGB CONC 33.3 g/dl (32.0-36.5); MEAN CORPUSCULAR VOLUME 89.7 fl (80.0-96.0); PLATELET COUNT, AUTOMATED 314 10^3/uL (150-450); RED BLOOD COUNT 4.48 10^6/uL (4.00-5.40); WHITE BLOOD COUNT 7.5 10^3/uL (4.0-10.0)
[2023-06-16 18:42] LABS: THYROID STIMULATING HORMONE 0.439 uIU/ML (0.55-4.78)
[2023-06-16 18:50] LABS: ALBUMIN 3.9 G/DL (3.2-5.2); ALKALINE PHOSPHATASE 66 U/L (46-116); ALT/SGPT 28 U/L (7.0-40); AST/SGOT 18 U/L (<34); BILIRUBIN,TOTAL 0.5 MG/DL (0.3-1.2); BLOOD UREA NITROGEN 14 MG/DL (9-23); CALCIUM LEVEL 8.8 MG/DL (8.5-10.1); CARBON DIOXIDE LEVEL 25 MMOL/L (20-31); CHLORIDE LEVEL 107 MMOL/L (98-107); CHOLESTEROL LEVEL 133 MG/DL (<200); CHOLESTEROL RISK RATIO 3.24 (<5); CREATININE FOR GFR 0.72 MG/DL (0.55-1.30); GLOMERULAR FILTRATION RATE > 60.0 (>60); GLUCOSE, FASTING 86 MG/DL (60-100); POTASSIUM SERUM 5.2 MMOL/L (3.5-5.1); SODIUM LEVEL 137 MMOL/L (136-145); TOTAL PROTEIN 6.4 G/DL (5.7-8.2); TRIGLYCERIDES LEVEL 65 MG/DL (<150)
== END ==
LOC: M LAB REF 16:19
PROVIDERS: ATTEND Physician Assistant
DX: E66.9 Obesity, unspecified (principal); Z13.1 Encounter for screening for diabetes mellitus; Z13.220 Encounter for screening for lipoid disorders

== ENCOUNTER → 2023-11-05 | Outpatient (REF) | payer BC ==
[2023-11-05 16:33] LABS: APPEARANCE, URINE MANUAL CLOUDY (CLEAR); COLOR, URINE MANUAL ORANGE (YELLOW)
[2023-11-05 16:34] LABS: BILIRUBIN, URINE MANUAL OBSCURED (NEGATIVE); BLOOD URINE MANUAL OBSCURED (NEGATIVE); GLUCOSE, URINE (UA) MANUAL OBSCURED mg/dL (NEGATIVE); KETONE, URINE MANUAL OBSCURED mg/dL (NEGATIVE); LEUKOCYTE ESTERASE, URINE MAN OBSCURED (NEGATIVE); NITRITE, URINE MANUAL OBSCURED (NEGATIVE); PROTEIN, URINE MANUAL OBSCURED mg/dL (NEGATIVE); UROBILINOGEN, URINE MANUAL OBSCURED mg/dl (NORMAL)
[2023-11-05 16:41] LABS: BACTERIA, URINE LARGE AMOUNT; HYALINE CAST, URINE NONE SEEN /lpf (0-1); RBC, URINE 0-1 /hpf (0-3); SQUAMOUS EPITHELIAL CELL URINE LARGE AMOUNT /hpf (SMALL AMT)
== END ==
LOC: M LAB REF 16:14
PROVIDERS: ATTEND Physician Assistant
DX: N39.0 Urinary tract infection, site not specified (principal)

== ENCOUNTER → 2023-11-12 | Outpatient (REF) | payer BC ==
[2023-11-12 17:57] LABS: THYROID STIMULATING HORMONE 0.531 uIU/ML (0.55-4.78)
== END ==
LOC: M LAB REF 16:24
PROVIDERS: ATTEND Physician Assistant
DX: R89.1 Abnormal level of hormones in specimens from other organs, systems and tissues (principal); E87.5 Hyperkalemia

== ENCOUNTER → 2024-01-27 | Outpatient (CLI) | payer BC | LOC: M EKG 08:36 | PROVIDERS: ATTEND Physician Assistant | DX: R07.9 Chest pain, unspecified (principal) ==

== ENCOUNTER → 2024-05-30 | Outpatient (CLI) | payer BC ==
[2024-05-30 09:42] LABS: HEMOGLOBIN 14.1 g/dl (12.0-15.5); MEAN CORPUSCULAR HEMOGLOBIN 30.2 pg (27.0-33.0); MEAN CORPUSCULAR HGB CONC 33.6 g/dl (32.0-36.5); MEAN CORPUSCULAR VOLUME 89.9 fl (80.0-96.0); PLATELET COUNT, AUTOMATED 347 10^3/uL (150-450); RED BLOOD COUNT 4.67 10^6/uL (4.00-5.40); WHITE BLOOD COUNT 10.3 10^3/uL (4.0-10.0)
[2024-05-30 10:06] LABS: ALBUMIN 4.3 G/DL (3.2-5.2); ALKALINE PHOSPHATASE 61 U/L (35-104); ALT/SGPT 12 U/L (7.0-40); AST/SGOT 11 U/L (<34); BILIRUBIN,TOTAL 0.7 MG/DL (0.3-1.2); BLOOD UREA NITROGEN 13 MG/DL (9-23); CALCIUM LEVEL 9.9 MG/DL (8.5-10.1); CARBON DIOXIDE LEVEL 34 MMOL/L (20-31); CHLORIDE LEVEL 103 MMOL/L (98-107); CHOLESTEROL LEVEL 136 MG/DL (<200); CHOLESTEROL RISK RATIO 2.84 (<5); CREATININE FOR GFR 0.89 MG/DL (0.55-1.30); GLOMERULAR FILTRATION RATE > 60.0 (>60); GLUCOSE, FASTING 88 MG/DL (60-100); HDL CHOLESTEROL 47.8 MG/DL (>40); LDL CHOLESTEROL 70.4 MG/DL (<100); NON-HDL-C 88.2 MG/DL; POTASSIUM SERUM 3.8 MMOL/L (3.5-5.1); SODIUM LEVEL 144 MMOL/L (136-145); TOTAL PROTEIN 7.3 G/DL (5.7-8.2); TRIGLYCERIDES LEVEL 89 MG/DL (<150)
== END ==
LOC: M LAB 08:49
PROVIDERS: ATTEND Physician Assistant
DX: Z13.220 Encounter for screening for lipoid disorders (principal); Z68.33 Body mass index [BMI] 33.0-33.9, adult

== ENCOUNTER → 2024-11-09 | Outpatient (REF) | payer BC, OTHER ==
[2024-11-09 12:52] LABS: APPEARANCE, URINE HAZY (CLEAR); BACTERIA, URINE AUTO NEGATIVE (NEGATIVE); BILIRUBIN, URINE AUTO NEGATIVE (NEGATIVE); BLOOD, URINE BLOOD NEGATIVE (NEGATIVE); CALCIUM OXALATE CRYSTALS SMALL; GLUCOSE, URINE (UA) AUTO NEGATIVE (NEGATIVE); KETONE, URINE AUTO NEGATIVE (NEGATIVE); LEUKOCYTE ESTERASE, URINE AUTO NEGATIVE (NEGATIVE); MUCUS, URINE SMALL (NEGATIVE); NITRITE, URINE AUTO NEGATIVE (NEGATIVE); PROTEIN, URINE AUTO 1+ mg/dL (NEGATIVE); RBC, URINE AUTO 0 /HPF (0-3); SPECIFIC GRAVITY URINE AUTO 1.027 (1.002-1.035); SQUAMOUS EPITHELIAL CELL UR AU 9 /HPF (0-6); UROBILINOGEN, URINE AUTO 0.2 mg/dL (0.0-2.0); WBC, URINE AUTO 9 /HPF (0-3)
== END ==
LOC: M LAB REF 11:53
PROVIDERS: ATTEND Physician Assistant
DX: N39.0 Urinary tract infection, site not specified (principal)

== ENCOUNTER → 2025-01-03 | Outpatient (REF) | payer OTHER, BC ==
[2025-01-03 17:56] LABS: APPEARANCE, URINE HAZY (CLEAR); BACTERIA, URINE AUTO 1+ (NEGATIVE); BILIRUBIN, URINE AUTO NEGATIVE (NEGATIVE); BLOOD, URINE BLOOD NEGATIVE (NEGATIVE); GLUCOSE, URINE (UA) AUTO NEGATIVE (NEGATIVE); KETONE, URINE AUTO TRACE mg/dL (NEGATIVE); LEUKOCYTE ESTERASE, URINE AUTO TRACE (NEGATIVE); MUCUS, URINE SMALL (NEGATIVE); NITRITE, URINE AUTO POSITIVE (NEGATIVE); PROTEIN, URINE AUTO 1+ mg/dL (NEGATIVE); RBC, URINE AUTO 1 /HPF (0-3); SPECIFIC GRAVITY URINE AUTO 1.028 (1.002-1.035); SQUAMOUS EPITHELIAL CELL UR AU 12 /HPF (0-6); UROBILINOGEN, URINE AUTO 0.2 mg/dL (0.0-2.0); WBC, URINE AUTO 37 /HPF (0-3)
== END ==
LOC: M LAB REF 16:47
PROVIDERS: ATTEND Physician Assistant
DX: N39.0 Urinary tract infection, site not specified (principal)

== ENCOUNTER → 2025-02-19 | Outpatient (REF) | payer OTHER, BC | LOC: M LAB REF 20:07 | PROVIDERS: ATTEND Physician Assistant | DX: J02.9 Acute pharyngitis, unspecified (principal) ==

== ENCOUNTER → 2025-02-20 | Outpatient (REF) | payer BC, OTHER | LOC: M LAB REF 17:14 | PROVIDERS: ATTEND Nurse Practitioner Family | DX: J00 Acute nasopharyngitis [common cold] (principal) ==